=== PATIENT | male | born 1995 | race Caucasian/White ===

== ENCOUNTER 2023-07-14 13:47 | Emergency (ER) | payer BC, SELFPAY ==
[2023-07-14 14:12] VITALS: BP 150/96
[2023-07-14 14:49] LABS: COVID-19 Antigen Negative (Negative)
[2023-07-14 15:05] VITALS: BMI 25.0
[2023-07-14] MEDS: VIBRAMYCIN 100 MG PO (15:29)
--- NOTE | 2023-07-14 15:32 | ED.GENMED ---
History of Present Illness
General
Chief Complaint: Cough
Source: patient
Exam Limitations: none
Time Seen by Provider: 07/14/23 15:11
Nursing documentation reviewed up to this point in time: agreed with
Travel History
Have you had any contact with someone who has COVID-19?: No
Do you have any symptoms of coronavirus? Fever > 100 degrees, chills, cough, shortness of breath, sore throat, loss of taste or smell, muscle aches, or headache?: Yes
Symptoms:: cough
History of Present Illness
History of Present Illness:
The patient is a generally well and healthy 28-year-old man who comes in with complaints of an ongoing cough ever since testing positive for the flu about 2 weeks ago. Patient reports he grew concerned because over the last 2 days, in the morning,
he is coughing up bloody mucus. Patient denies chest pain, shortness of breath and dizziness. He is not on blood thinners. Patient reports he has a 5-year history of smoking but recently quit. He denies leg pain and leg swelling.
Past History
Past History
ED Past Medical History: None and Psychiatric (Anxiety)
ED Past Surgical History: Appendectomy
Social History
Tobacco: Former smoker
Alcohol: Other
Drug: Marijuana
Personal: Single
Living: with family
Employment: Employed
Family History
Family History: Other
Review of Systems
Review of Systems
Allergies reviewed?: Yes
All Other Systems: ROS reviewed and negative except as documented in HPI and ROS
Constitutional: Reports no symptoms
EENT: Reports no symptoms
Respiratory: Reports cough
Cardiac: Reports no symptoms
ABD/GI: Reports no symptoms
: Reports no symptoms
Musculoskeletal: Reports no symptoms
Skin: Reports no symptoms
Neurological: Reports no symptoms
Endocrine: Reports no symptoms
Hematologic/Lymphatic: Reports no symptoms
Psychiatric: Reports no symptoms
Phy Exam
Physical Exam
Physical Exam:
Physical Exam
General: no apparent distress, not acutely ill. Conversational, smiling
Neck: supple. no meningeal signs. normal psoterior pharynx
Heart: s1/s2 regular rate and rhythm, no murmur. equal radial pulses.
Lungs: no acute respiratory distress. Primarily clear with occasional wheeze. Speaks in full sentences without any difficulty.
Abdomen: normal bowel sounds. not tender. no CVAT
Neuro: alert and oriented. no focal neurological deficits
Skin: no rash
Psychiatric: well kept. interactive and cooperative
Extremities: no edema. no calf tenderness. negative homans. good distal pulses
Course
Orders/Labs/Results
Orders:
Orders
07/14/23 14:17
CR Chest - 2 Views Urgent
Comment:
Reason For Exam: suspected infection
07/14/23 14:20
COVID-19 Antigen Urgent
Source: Nasal Swab
07/14/23 15:25
Doxycycline [Vibramycin] 100 mg PO NOW STA
07/14/23 15:26
Albuterol [ProAIR HFA INHALER] 2 puff INH R NOW STA
Vital Signs
Initial and Last Documented VS:
Initial Vital Signs
Temp Pulse Resp BP Pulse Ox
98.8 F 99 17 150/96 100
07/14/23 14:12 07/14/23 14:12 07/14/23 14:12 07/14/23 14:12 07/14/23 14:12
Last Documented Vital Signs
Temp Pulse Resp BP Pulse Ox
98.8 F 99 17 150/96 100
07/14/23 14:12 07/14/23 14:12 07/14/23 14:12 07/14/23 14:12 07/14/23 14:12
MDM/Problems Addressed
Differential Diagnosis Includes:
Acute bronchitis, pneumonia, PE
MDM/Problems Addressed:
Patient presents with subacute cough and acute hemoptysis
Chronic conditions affecting care:
Given patient has a history of smoking, he is at increased risk of PE and lung infections
*Radiology
Radiology exam reviewed: preliminary read by ED provider (Chest x-ray read by me.. Possible small right sided infiltrate) and radiology read reviewed
*Pulse Oximetry
Patient hypoxic: no
*EKG
Interpreted by ED Provider?: NA
*Processing Tech Interpretation
Rate: Processing Tech- N/A
*Critical Care Note
Total Time (30-74mins, 75-104mins- exclusive of procedures): Not Applicable
Data Reviewed
Source: patient
Patient Management
Escalation/DeEscalation of care consider admission/obs:
Patient looks extremely well and comfortable. He is breathing comfortably. He has no chest pain or shortness of breath to suggest PE. It is most likely has acute bronchitis or mild pneumonia. He is on no blood thinners and his risk of a
significant bleed is minimal. He has no bleeding at this time.
ED Attending Note
-
Portions of this chart may have been created with voice recognition software.� Occasional wrong word or��sound alike� substitutions may have occurred due to the inherent limitations of voice recognition software.
Discharge Plan
Departure
Patient Disposition: Home (Routine Discharge)
Date of Disposition: 07/14/23
Time of Disposition: 15:26
Patient with high blood pressure during this ER visit?: Yes
Condition: Good
Covid-19: Negative COVID-19
Discharge Problem:
Pneumonia, Cough with hemoptysis
Instructions: Pneumonia, Adult (DC), Coughing up blood
Prescriptions:
New
doxycycline hyclate 100 mg capsule
100 mg PO BID Qty: 13 0RF
albuterol sulfate [ProAir HFA] 90 mcg/actuation HFA aerosol inhaler
1 puff inhalation Q4HPRN PRN (Reason: shortness of breath) Qty: 6.7 0RF
No Action
propranolol 10 mg Tablet
10 mg PO PRN PRN (Reason: Anxiety)
Referrals:
Ravinder Church DO [Family Provider] -
Activity Restrictions/Additional Instructions:
Follow-up with your primary care doctor in 3-4 days if your mucus is still bloody
Interventions
Interventions:
*Risk Screen - Suicide Last Done: 07/14/23 15:06
*General Assessment Last Done: 07/14/23 15:06
*Neglect/Abuse Screening Last Done: 07/14/23 15:06
ED- Fall Risk Assessment Last Done: 07/14/23 15:06
*ED COVID-19 Vaccine History Last Done: 07/14/23 15:06
*Nursing Disposition Last Done: 07/14/23 15:42
ED- Pulmonary Assessment Last Done: 07/14/23 15:08
Discharge Date and Time
Discharge Date/Time: 07/14/23 15:51
[2023-07-14] MEDS: ProAIR HFA INHALER 2 PUFF INH (15:51)
--- NOTE | 2023-07-14 17:32 | RESPNOTE ---
1545 Instucted patient on how to use spacer with his MDI
== END 2023-07-14 15:51 | disposition home or self-care (01) ==
LOC: EMR 13:47
PROVIDERS: Emergency Medicine; EMERGENCY PHYSICIAN Emergency Medicine; FAMILY PHYSICIAN Internal Medicine
DX: J18.9 Pneumonia, unspecified organism (principal); R04.2 Hemoptysis; R05.9 Cough, unspecified; Z11.52 Encounter for screening for COVID-19; F41.9 Anxiety disorder, unspecified; R03.0 Elevated blood-pressure reading, without diagnosis of hypertension; Z87.891 Personal history of nicotine dependence; Z87.09 Personal history of other diseases of the respiratory system; Z91.013 Allergy to seafood
CPT/HCPCS: 99283; 94640; 71046; 87811